=== PATIENT | female | born 1960 | race Caucasian/White ===

== ENCOUNTER 2016-08-28 06:38 | Emergency (ER) | payer OTHER ==
[2016-08-28 06:55] VITALS: TEMP 98.1; BMI 32.7
--- NOTE | 2016-08-28 07:56 | PDOC ---
*Physical Exam - Vital Signs Last Vital Signs Temp Pulse Resp BP Pulse Ox 98.1 F 122 H 14 142/82 98 08/28/16 06:53 08/28/16 06:53 08/28/16 06:53 08/28/16 06:53 08/28/16 06:53 - Physical Exam Comments: 08/28/16 07:55 MIDLEVEL NOTE Pt seen by Midlevel Provider under my direct supervision. Pt interviewed and examined. Ancillary studies reviewed. I agree with plan as outlined by Midlevel Provider. EKG Normal sinus rhythm 99, normal axis Normal AV and IV conduction time Normal EKG 08/28/16 09:20 Laboratory Results - last 24 hr 08/28/16 08/28/16 08/28/16 08:02 08:02 08:02 WBC 12.3 H D RBC 5.28 H Hgb 15.2 Hct 46.2 H MCV 87.5 MCHC 32.9 RDW 13.2 Plt Count 296 MPV 8.3 Neutrophils % 71.9 Lymphocytes % 21.7 D Monocytes % 5.1 Eosinophils % 0.7 Basophils % 0.6 INR 1.03 D-Dimer Sodium Potassium Chloride Carbon Dioxide Anion Gap BUN Creatinine Creat Clearance w eGFR Random Glucose Calcium Magnesium Total Bilirubin AST ALT Alkaline Phosphatase Creatine Kinase Troponin I Total Protein Albumin TSH Urine Color Ltyellow Urine Appearance Clear Urine pH 5.0 Ur Specific [place] 1.013 Urine Protein Negative Urine Glucose (UA) 1+ H Urine Ketones Trace H Urine Blood Negative Urine Nitrite Negative Urine Bilirubin Negative Urine Urobilinogen Negative Ur Leukocyte Esterase Trace H Urine RBC None Urine WBC 1 Ur Epithelial Cells Rare Urine Mucus Rare 08/28/16 08/28/16 08:02 08:02 WBC RBC Hgb Hct MCV MCHC RDW Plt Count MPV Neutrophils % Lymphocytes % Monocytes % Eosinophils % Basophils % INR D-Dimer < 200 Sodium 136 Potassium 4.0 Chloride 100 Carbon Dioxide 29 Anion Gap 7 L BUN 19 H Creatinine 0.9 Creat Clearance w eGFR > 60 Random Glucose 119 H Calcium 9.0 Magnesium 2.0 Total Bilirubin 0.8 AST 14 L ALT 22 Alkaline Phosphatase 106 Creatine Kinase 92 Troponin I < 0.02 Total Protein 8.0 Albumin 4.1 TSH 3.40 D Urine Color Urine Appearance Urine pH Ur Specific [place] Urine Protein Urine Glucose (UA) Urine Ketones Urine Blood Urine Nitrite Urine Bilirubin Urine Urobilinogen Ur Leukocyte Esterase Urine RBC Urine WBC Ur Epithelial Cells Urine Mucus D-dimer negative 08/28/16 10:05 TSH on the higher end of the normal range No evidence of hyperthyroidism based on this Patient remains in sinus rhythm on the monitor during period of observation in the emergency department ED Treatment Course - LABORATORY CBC & Chemistry Diagram: 08/28/16 08:02 08/28/16 08:02 *DC/Admit/Observation/Transfer Diagnosis at time of Disposition: Palpitations - Discharge Dispostion Disposition: HOME Condition at time of disposition: Improved - Referrals Referrals: Patrick Bedoya MD [Primary Care Provider] - - Patient Instructions Printed Discharge Instructions: DI for Anxiety -- Adult, DI for Palpitations Additional Instructions: Please follow-up with Dr. Bedoya on to visit with the marketing campaign analyst. If your symptoms worsen or you develop chest pain please return to the emergency department immediately
--- NOTE | 2016-08-28 08:18 | PDOC ---
History of Present Illness - General Chief Complaint: Palpitations Stated Complaint: PALPITATIONS, SOB Time Seen by Provider: 08/28/16 07:52 History Source: Patient Exam Limitations: No Limitations - History of Present Illness Initial Comments: 08/28/16 08:00 56-year-old female presents to the emergency with complaints of palpitations since yesterday intermittently associated with shortness of breath and dizziness. Patient states symptoms normally occur with exertion and denies any visual changes, headache, neck pain, chest pain, nausea, abdominal pain, or weakness. Patient states has history of diabetes and is followed by Dr. Bedoya who found a nodule approximately 1-2 months ago after having an ultrasound of her thyroid since it "felt large "on exam. Patient denies any heat or cold intolerance, weight change, hair loss, lethargy, or insomnia. Patient denies drug or alcohol use and states no recent travel, recent surgery, history of anxiety, recent change in medication or illness. Timing/Duration: 24 hours Severity: moderate Associated Symptoms: reports: shortness of breath Past History - Past Medical History Allergies/Adverse Reactions: Allergies Allergy/AdvReac Type Severity Reaction Status Date / Time No Known Allergies Allergy Verified 08/28/16 06:52 Home Medications: Ambulatory Orders Insulin Pump Cartridge [Accu-Chek D-Andrew Plus] 1 each SQ ASDIR 02/13/12 Lisinopril/Hydrochlorothiazide [Lisinopril-Hctz 10-12.5 mg Tab] 1 each PO DAILY 08/28/16 Diabetes: Yes (iddm) HTN: Yes - Immunization History Td Vaccination: No - Psycho/Social/Smoking Cessation Hx Anxiety: No Suicidal Ideation: No Smoking Status: No Smoking History: Never smoked Have you smoked in the past 12 months: No Number of Cigarettes Smoked Daily: 0 Information on smoking cessation initiated: No Hx Alcohol Use: No Drug/Substance Use Hx: No Patient Lives Alone: No Lives with/in: spouse/SO Review of Systems - Review of Systems Able to Perform ROS?: Yes Constitutional: No: Symptoms Reported HEENTM: No: Symptoms Reported Respiratory: Yes: SOB with Exertion Cardiac (ROS): Yes: Lightheadedness, Palpitations ABD/GI: No: Symptoms Reported : No: Symptoms Reported Musculoskeletal: No: Symptoms Reported Integumentary: No: Symptoms Reported Neurological: No: Symptoms reported Endocrine: No: Symptoms Reported Hematologic/Lymphatic: No: Symptoms Reported *Physical Exam - Vital Signs Last Vital Signs Temp Pulse Resp BP Pulse Ox 98.1 F 122 H 14 142/82 98 08/28/16 06:53 08/28/16 06:53 08/28/16 06:53 08/28/16 06:53 08/28/16 06:53 - Physical Exam General Appearance: Yes: Nourished, Appropriately Dressed. No: Apparent Distress HEENT: positive: EOMI, VENKATA. negative: Pale Conjunctivae Neck: positive: Normal Thyroid (no bruit), Supple. negative: Carotid bruit Respiratory/Chest: positive: Lungs Clear, Normal Breath Sounds. negative: Respiratory Distress, Accessory Muscle Use Cardiovascular: positive: Regular Rhythm. negative: Tachycardia (99 on EKG, 92 (left radial pulse)) Vascular Pulses: Dorsalis-Pedis (R): 2+, Doralis-Pedis (L): 2+ Gastrointestinal/Abdominal: positive: Soft. negative: Tenderness Extremity: positive: Normal Capillary Refill. negative: Pedal Edema Integumentary: positive: Normal Color, Warm, Moist Neurologic: positive: Normal Mood/Affect, Motor Strength 5/5 (ambulatory) Heart Score/ECG Review - History History: Slightly suspicious - Electrocardiogram EKG: Normal - Age Age: 45-65 - Risk Factors Risk Factors Heart Score: Yes Hx Hypertension, Yes Hx Diabetes Based on the list above the patient has:: 1-2 risk factors - Troponin Troponin: </= normal limit - Score Heart Score - Total: 2 - ECG Intrepretation Rhythm: Regular Rhythm (sinus rhythm at 99. no acute changes. No ST elevation/ depression noted. Intervals are reg.) - ECG Impressions Normal ECG: Yes Non-specific ST Elevation: No Ischemic Changes: No ED Treatment Course - LABORATORY CBC & Chemistry Diagram: 08/28/16 08:02 08/28/16 08:02 - RADIOLOGY Radiology Studies Ordered: Category Date Time Status CHEST X-RAY PORTABLE* [RAD] Stat Radiology 08/28/16 08:03 Ordered Medical Decision Making - Medical Decision Making 08/28/16 08:20 Patient he will complaints of intermittent palpitations worsened with exertion since yesterday associated with lightheadedness, and shortness of breath. Patient denies history of DVT, PE or history of clotting disorders. Patient states was told she had a thyroid nodule approximately 1-2 months ago and ultrasound but required no medical management at this time. Patient has history of diabetes which she states her BGM was 132 yesterday. Patient concerning for thyroid disorder versus PE E versus ACS. Patient ordered for labs, EKG, chest x-ray, and will consult Dr. Bedoya as needed. Patient states has not had an echocardiogram nor does she have a choir director. 08/28/16 09:23 Laboratory Tests 08/28/16 08/28/16 08/28/16 08:02 08:02 08:02 WBC 12.3 H D Lymphocytes % 21.7 D INR 1.03 D-Dimer Sodium Potassium Chloride Carbon Dioxide Anion Gap BUN Creatinine Creat Clearance w eGFR Random Glucose Calcium Total Bilirubin AST ALT Troponin I TSH Urine Glucose (UA) 1+ H Urine Ketones Trace H Urine Blood Negative Urine Nitrite Negative Ur Leukocyte Esterase Trace H Urine WBC 1 08/28/16 08/28/16 08:02 08:02 WBC Lymphocytes % INR D-Dimer < 200 Sodium 136 Potassium 4.0 Chloride 100 Carbon Dioxide 29 Anion Gap 7 L BUN 19 H Creatinine 0.9 Creat Clearance w eGFR > 60 Random Glucose 119 H Calcium 9.0 Total Bilirubin 0.8 AST 14 L ALT 22 Troponin I < 0.02 TSH 3.40 D Urine Glucose (UA) Urine Ketones Urine Blood Urine Nitrite Ur Leukocyte Esterase Urine WBC 1 L of normal saline ordered. 08/28/16 10:[address] Bedoya and agrees patient may follow-up in the office on with the choir director who was there on from [facility]. While reviewing patient's labs and findings with pt, . I questioned again about stress and states yes she is under a lot of stress in regards to her daughter But denies insomnia, change in appetite, or depression. Patient is currently asymptomatic and is requesting to go home. *DC/Admit/Observation/Transfer Diagnosis at time of Disposition: Palpitations - Discharge Dispostion Disposition: HOME Condition at time of disposition: Improved - Referrals Referrals: Patrick Bedoya MD [Primary Care Provider] - - Patient Instructions Printed Discharge Instructions: DI for Palpitations, DI for Anxiety -- Adult Additional Instructions: Please follow-up with Dr. Bedoya on to visit with the choir director. If your symptoms worsen or you develop chest pain please return to the emergency department immediately
[2016-08-28 08:38] LABS: BASOPHIL 0.6 % (0-2.0); EOSINOPHIL 0.7 % (0-4.5); MCH 28.7 pg (25.7-33.7); MCHC 32.9 g/dl (32.0-36.0); MEAN CELL VOLUME 87.5 fl (80-96); MEAN PLT VOLUME 8.3 fl (7.5-11.1); NEUTROPHILS 71.9 % (42.8-82.8); PLATELET COUNT 296 K/MM3 (134-434); RDW 13.2 % (11.6-15.6); WHITE BLOOD COUNT 12.3 K/mm3 (4.0-10.0)
[2016-08-28 08:42] LABS: URINE APPEARANCE CLEAR; URINE BILIRUBIN NEGATIVE (NEGATIVE); URINE BLOOD NEGATIVE (NEGATIVE); URINE COLOR LTYELLOW; URINE GLUCOSE (UA) 1+ (NEGATIVE); URINE KETONE TRACE (NEGATIVE); URINE NITRITE NEGATIVE (NEGATIVE); URINE PROTEIN NEGATIVE (NEGATIVE); URINE UROBILINOGEN NEGATIVE E.U./dl (0.2-1.0)
[2016-08-28 08:43] LABS: URINE LEUK ESTERASE TRACE (NEGATIVE)
[2016-08-28 08:45] LABS: URINE MUCUS RARE; URINE WBC 1 /hpf (3-5)
[2016-08-28] MEDS ORDERED: SODIUM CHLORIDE 1,000 ML IV STA (09:00)
[2016-08-28 09:04] LABS: INR 1.03 (0.82-1.09); PROTHROMBIN TIME (PATIENT) 11.3 SEC (9.98-11.88)
[2016-08-28 09:05] LABS: ALBUMIN 4.1 g/dl (3.4-5.0); ANION GAP 7 (8-16); BILIRUBIN,TOTAL 0.8 mg/dL (0.2-1.0); CO2 29 mmol/L (21-32); CREATININE 0.9 mg/dL (0.55-1.02); GLUCOSE,RANDOM 119 mg/dL (74-106); SGOT/AST 14 U/L (15-37); SGPT/ALT 22 U/L (12-78)
[2016-08-28 09:13] LABS: ALK PHOS 106 U/L (45-117); TROPONIN I < 0.02 ng/ml (0.00-0.05)
--- NOTE | 2016-08-28 10:57 | EKG ---
Test Reason : Blood Pressure : / mmHG Vent. Rate : 099 BPM Atrial Rate : 099 BPM P-R Int : 174 ms QRS Dur : 080 ms QT Int : 350 ms P-R-T Axes : 075 057 055 degrees QTc Int : 449 ms NORMAL SINUS RHYTHM NORMAL ECG WHEN COMPARED WITH ECG OF 04-JUN-2011 14:48, NO SIGNIFICANT CHANGE WAS FOUND Confirmed by SANTANA HARRIS MD ([id number]) on 08/28/2016 10:56:40 AM Referred By: Confirmed By:SANTANA HARRIS MD
[2016-08-28 11:44] VITALS: BP 133/76; PULSE 99
== END 2016-08-28 11:05 | disposition home or self-care (01) ==
LOC: JER 06:38
PROC: 3E0337Z Introduction of Electrolytic and Water Balance Substance into Peripheral Vein, Percutaneous Approach (ICD-10-PCS; principal; 2016-08-28)
DX: R00.2 Palpitations (principal); E11.9 Type 2 diabetes mellitus without complications; Z79.4 Long term (current) use of insulin; Z96.41 Presence of insulin pump (external) (internal); I10 Essential (primary) hypertension; F41.9 Anxiety disorder, unspecified
CPT/HCPCS: 36415; 71010-TC; 80053; 81003; 81015; 82550; 83735; 84443; 84484; 85025; 85379; 85610; 93005; 93010; 96360; 99283-25

== ENCOUNTER 2018-09-20 13:15 | Emergency (ER) | payer OTHER ==
[2018-09-20 13:29] VITALS: BP 167/90; PULSE 99; TEMP 98.2; BMI 29.6
[2018-09-20 13:46] LABS: PH,URINE 7.5 (4.5-8); URINE APPEARANCE CLOUDY; URINE BILIRUBIN NEGATIVE (NEGATIVE); URINE COLOR RED; URINE GLUCOSE (UA) NEGATIVE (NEGATIVE); URINE KETONE NEGATIVE (NEGATIVE); URINE NITRITE NEGATIVE (NEGATIVE); URINE PROTEIN 2+ (NEGATIVE)
[2018-09-20 13:47] LABS: URINE LEUK ESTERASE TRACE (NEGATIVE)
[2018-09-20 13:48] LABS: EPI CELLS FEW /HPF; URINE BACTERIA 1+ /hpf (NEGATIVE); URINE RBC >100 /hpf (0-3); URINE WBC 20-40 (0-5)
--- NOTE | 2018-09-20 14:10 | PDOC ---
History of Present Illness - General Chief Complaint: Hematuria Stated Complaint: HEMATURIA Time Seen by Provider: 09/20/18 13:15 - History of Present Illness Initial Comments: 09/20/18 14:35 The patient is a 58 year old female, with a significant PMH of IDDM, HTN, and hypothyroidism, who presents to the emergency department complaining of dysuria , hematuria, frequency and intermittent suprapubic pain since this morning. The patient states that beginning this morning she felt urinary urgency and upon going to urinate she experienced a strong pain in her suprapubic area and only a small amount of urine. She notes blood in her urine as well. Denies hx similar sxs. The patient denies chest pain, shortness of breath, headache and dizziness. Denies fever, chills, nausea, vomit, diarrhea and constipation. Denies weakness/numbness, trauma Denies recent travel Allergies: NKA Social history: None reported PCP: Dr. Kang Past History - Past Medical History Allergies/Adverse Reactions: Allergies Allergy/AdvReac Type Severity Reaction Status Date / Time No Known Allergies Allergy Verified 08/28/16 06:52 Home Medications: Ambulatory Orders Insulin Pump Cartridge [Accu-Chek D-Andrew Plus] 1 each SQ ASDIR 02/13/12 Lisinopril/Hydrochlorothiazide [Lisinopril-Hctz 10-12.5 mg Tab] 1 each PO DAILY 08/28/16 Phenazopyridine HCl [Pyridium -] 200 mg PO TID #6 tablet 09/20/18 Sulfamethoxazole/Trimethoprim [Bactrim Ds Tablet] 1 each PO BID #6 tablet Diabetes: Yes HTN: Yes - Reproductive History Is Patient Now?: No - Immunization History Td Vaccination: No - Suicide/Smoking/Psychosocial Hx Smoking Status: No Smoking History: Never smoked Have you smoked in the past 12 months: No Number of Cigarettes Smoked Daily: 0 Information on smoking cessation initiated: No Hx Alcohol Use: No Drug/Substance Use Hx: No Review of Systems - Review of Systems Comments:: 09/20/18 14:32 GENERAL/CONSTITUTIONAL: No fever or chills. No weakness. HEAD, EYES, EARS, NOSE AND THROAT: No change in vision. No ear pain or discharge. No sore throat. GASTROINTESTINAL: No nausea, vomiting, diarrhea or constipation. GENITOURINARY: +urgency, frequency, dysuria, suprapubic pain CARDIOVASCULAR: No chest pain or shortness of breath. RESPIRATORY: No cough, wheezing, or hemoptysis. MUSCULOSKELETAL: No joint or muscle swelling or pain. No neck or back pain. SKIN: No rash NEUROLOGIC: No headache, vertigo, loss of consciousness, or change in strength/ sensation. ENDOCRINE: No increased thirst. No abnormal weight change. HEMATOLOGIC/LYMPHATIC: No anemia, easy bleeding, or history of blood clots. ALLERGIC/IMMUNOLOGIC: No hives or skin allergy. *Physical Exam - Vital Signs Last Vital Signs Temp Pulse Resp BP Pulse Ox 98.2 F 99 H 20 167/90 98 09/20/18 13:15 09/20/18 13:15 09/20/18 13:15 09/20/18 13:15 09/20/18 13:15 - Physical Exam Comments: 09/20/18 14:33 GENERAL: Awake, alert, and fully oriented, in no acute distress HEAD: No signs of trauma EYES: PERRLA, EOMI, sclera anicteric, conjunctiva clear LUNGS: Breath sounds equal, clear to auscultation bilaterally. No wheezes, and no crackles HEART: Regular rate and rhythm, normal S1 and S2, no murmurs, rubs or gallops ABDOMEN: Soft, nontender, normoactive bowel sounds. No guarding, no rebound. No masses EXTREMITIES: Normal range of motion, no edema. No clubbing or cyanosis. No cords, erythema, or tenderness NEUROLOGICAL: Normal speech, cranial nerves intact, equal strength and sensation b/l SKIN: Warm, Dry, normal turgor, no rashes or lesions noted. Moderate Sedation - Procedure Monitoring Vital Signs: Procedure Monitoring Vital Signs Temperature 98.2 F 09/20/18 13:15 Pulse Rate 99 H 09/20/18 13:15 Respiratory Rate 20 09/20/18 13:15 Blood Pressure 167/90 09/20/18 13:15 O2 Sat by Pulse Oximetry (%) 98 09/20/18 13:15 ED Treatment Course - ADDITIONAL ORDERS Additional order review: Laboratory Results 09/20/18 13:29 Urine Color Red Urine Appearance Cloudy Urine pH 7.5 Ur Specific [place] 1.025 Urine Protein 2+ H Urine Glucose (UA) Negative Urine Ketones Negative Urine Blood 3+ H Urine Nitrite Negative Urine Bilirubin Negative Urine Urobilinogen 1.0 Ur Leukocyte Esterase Trace H Urine RBC >100 Urine WBC 20-40 Ur Epithelial Cells Few Urine Bacteria 1+ Medical Decision Making - Medical Decision Making 09/20/18 14:26 58yo F hx IDDM, HTN, hypothyroidism presents to the ED with intermittent dysuria , hematuria, urgency, and intermittent suprapubic pain. Vitals on arrival with elevated BP likely 2/2 discomfort, on repeat 144/80. Exam with no abd or flank ttp, pt uncomfortable but well appearing otherwise. Impression is cystitis with bladder spasm. Plan to treat with bactrim and pyridium. No systemic signs of infection. Stable for DC home. I discussed the physical exam findings, ancillary test results and final diagnoses with the patient. I answered all of the patient's questions. The patient was satisfied with the care received and felt comfortable with the discharge plan and treatment plan. The patient will call their primary care physician within 24 hours to arrange follow-up and will return to the Emergency Department with any new, persistent or worsening symptoms. *DC/Admit/Observation/Transfer Diagnosis at time of Disposition: Cystitis, Painful bladder spasm, UTI (urinary tract infection) - Discharge Dispostion Disposition: HOME Condition at time of disposition: Stable Decision to Admit order: No - Prescriptions Prescriptions: Phenazopyridine HCl [Pyridium -] 200 mg PO TID #6 tablet Sulfamethoxazole/Trimethoprim [Bactrim Ds Tablet] 1 each PO BID #6 tablet - Referrals - Patient Instructions Printed Discharge Instructions: DI for Urinary Tract Infection (UTI), DI for Acute Cystitis Additional Instructions: Take the medications as prescribed Follow up with your primary doctor within 1-2 days Return to the emergency department if you have any new, worsening, or concerning symptoms - Post Discharge Activity - Attestations Physician Attestion: 09/20/18 14:32 I, Dr. Bisi Stein MD, attest that this document has been prepared under my direction and personally reviewed by me in its entirety. I further attest, that it accurately reflects all work, treatment, procedures and medical decision -making performed by me.
[2018-09-20] MEDS ORDERED: PHENAZOPYRIDINE HCL 100 MG TABLET (FP) PO ONE (14:15)
[2018-09-20] MEDS ORDERED: SULFAMETHOXAZOLE/TRIMETHOPRIM 800MG/160MG D.S. TABLET PO ONE (14:16)
[2018-09-20] MEDS ORDERED: PHENAZOPYRIDINE HCL 100 MG TABLET (FP) ONE (14:17)
[2018-09-20] MEDS ORDERED: SULFAMETHOXAZOLE/TRIMETHOPRIM 800MG/160MG D.S. TABLET ONE (14:18)
== END 2018-09-20 14:49 | disposition home or self-care (01) ==
LOC: FER 13:15
DX: N32.89 Other specified disorders of bladder (principal); E11.9 Type 2 diabetes mellitus without complications; I10 Essential (primary) hypertension; E07.9 Disorder of thyroid, unspecified
CPT/HCPCS: 81003; 81015; 87086; 87186; 99282-25

== ENCOUNTER 2020-04-03 09:17 | Inpatient (IN) | payer OTHER ==
[2020-04-03] MEDS ORDERED: ONDANSETRON 4 MG/2 ML VIAL IVPUSH ONE (09:40)
[2020-04-03] MEDS ORDERED: LACTATED RINGERS SOLUTION 1000 ML INFUS.BAG IV STA (09:40)
[2020-04-03 10:24] LABS: BASO % 0.5 % (0-2.0); EOS % 0.3 % (0-4.5); HEMATOCRIT 39.6 % (32.4-45.2); HEMOGLOBIN 12.9 GM/dL (10.7-15.3); LYMPH % 14.4 % (8-40); MCH 28.9 pg (25.7-33.7); MCHC 32.5 g/dl (32.0-36.0); MEAN CELL VOLUME 88.9 fl (80-96); NEUT % 80.8 % (42.8-82.8); PLATELET COUNT 293 K/MM3 (134-434); RBC 4.45 M/mm3 (3.60-5.2); RDW 13.1 % (11.6-15.6); WHITE BLOOD COUNT 12.8 K/mm3 (4.0-10.0)
[2020-04-03] MEDS ORDERED: FAMOTIDINE 20 MG/50 ML IVPB 20 MG/50 ML MG IVPB ONE (10:30)
[2020-04-03] MEDS ORDERED: MAG HYDROX/AL HYDROX/SIMETH 30 ML UNIT-DOSE CUP PO ONE (10:30)
[2020-04-03] MEDS ORDERED: LIDOCAINE VISCOUS 2% ORAL/TOP 20 ML UNIT-DOSE CUP MM ONE (10:30)
[2020-04-03 10:39] LABS: VENOUS BASE EXCESS -6.1 mmol/L (-2-2); VENOUS O2 SATURATION 60.5 % (70-80); VENOUS PCO2 46.8 mmHg (38-52); VENOUS PH 7.271 (7.310-7.410)
[2020-04-03 10:44] LABS: ALBUMIN 3.9 g/dl (3.4-5.0); ALK PHOS 119 U/L (45-117); ANION GAP 15 MMOL/L (8-16); BILIRUBIN,TOTAL 1.7 mg/dL (0.2-1); BLOOD UREA NITROGEN 28.9 mg/dL (7-18); CALCIUM 9.7 mg/dL (8.5-10.1); CHLORIDE 100 mmol/L (98-107); CO2 21 mmol/L (21-32); CREATININE 1.2 mg/dL (0.55-1.3); LIPASE 91 U/L (73-393); POTASSIUM 4.8 mmol/L (3.5-5.1); SGOT/AST 21 U/L (15-37); SGPT/ALT 31 U/L (13-61); SODIUM 135 mmol/L (136-145); TOT PROT 7.2 g/dl (6.4-8.2)
[2020-04-03 10:48] LABS: GLUCOSE,RANDOM 561 mg/dL (74-106)
[2020-04-03] MEDS ORDERED: LIDOCAINE VISCOUS 2% ORAL/TOP 20 ML UNIT-DOSE CUP ONE (10:48)
[2020-04-03] MEDS ORDERED: MAG HYDROX/AL HYDROX/SIMETH 30 ML UNIT-DOSE CUP ONE (10:48)
[2020-04-03] MEDS ORDERED: SODIUM CHLORIDE 1,000 ML IV STA (10:51)
[2020-04-03] MEDS ORDERED: INSULIN REGULAR HUMAN 100 UNITS/ML *VIAL IVPUSH ONE (10:56)
[2020-04-03] MEDS ORDERED: LACTATED RINGERS SOLUTION 1,000 ML/1,000 ML INFUS.BAG IV SCH (11:00)
[2020-04-03] MEDS ORDERED: POTASSIUM CHLORIDE 20 MEQ PREMIX IVPB 100 ML IVPB ONE (11:00)
[2020-04-03] MEDS ORDERED: KCL 10 MEQ IVPB 20 MEQ/200 ML INFUS.BAG IVPB ONE (11:07)
[2020-04-03 11:14] LABS: URINE APPEARANCE CLEAR; URINE BILIRUBIN NEGATIVE (NEGATIVE); URINE COLOR YELLOW; URINE GLUCOSE (UA) 3+ (NEGATIVE); URINE KETONE 2+ (NEGATIVE); URINE LEUK ESTERASE NEGATIVE (NEGATIVE); URINE NITRITE NEGATIVE (NEGATIVE); URINE PROTEIN NEGATIVE (NEGATIVE); URINE UROBILINOGEN 0.2 mg/dL (0.2-1.0)
--- NOTE | 2020-04-03 11:59 | PDOC ---
History of Present Illness - History of Present Illness Initial Comments: 04/03/20 11:58 HPI: 59 y/o F with T1IDDM, HTN, hypothyroid presenting with epigastric abdominal pain, nausea and emesis since last night associated with hyperglycemia. Symptoms started around 11pm when she then noted elevated Glu 400-500s. Administered additional 10u SQ insulin to her basal 2u per hour from insulin pump last night with improvement of Glu to 300s. This morning her symptoms worsened with feelings of dehydration, fatigue, and rpt Glu 500s. Patient thinks her pump isnt working because she has never been unresponsive to insulin before. She denies fever, chills, chest pain, SOB, dysuria, hematuria, cough, rhinorrhea, congesti on PMHx: as noted above ROS: as noted SHx: Denies tobacco use; no alcohol use; no rec drugs Allergies: NKDA ROS: GENERAL/CONSTITUTIONAL: No fever or chills. +fatigue. HEAD, EYES, EARS, NOSE AND THROAT: No change in vision. No ear pain or discharge. No sore throat. CARDIOVASCULAR: No chest pain or shortness of breath RESPIRATORY: No cough, wheezing, or hemoptysis. GASTROINTESTINAL: +nausea, vomiting; no diarrhea or constipation. GENITOURINARY: No dysuria, frequency, or change in urination. MUSCULOSKELETAL: No joint or muscle swelling or pain. No neck or back pain. SKIN: No rash NEUROLOGIC: No headache, vertigo, loss of consciousness, or change in strength/sensation. ENDOCRINE: +increased thirst. No abnormal weight change HEMATOLOGIC/LYMPHATIC: No anemia, easy bleeding, or history of blood clots. ALLERGIC/IMMUNOLOGIC: No hives or skin allergy. PE: GENERAL: Awake, alert, and fully oriented, no acute distress HEAD: No signs of trauma, normocephalic, atraumatic EYES: EOMI, sclera anicteric, conjunctiva clear ENT: Auricles normal inspection, hearing grossly normal, nares patent, or opharynx clear without exudates. dry mucosa NECK: Normal ROM, no lymphadenopathy LUNGS: No increased work of breathing, symmetrical chest rise, clear to auscultation bilaterally, no wheezes, crackles or rhonchi HEART: Regular rate, regular rhythm, normal S1 and S2, no murmur, peripheral pulses 2+ and equal bilaterally. ABDOMEN: Soft, nondistended, diffuse abdominal discomfort, No guarding, no re bound. No masses. No CVAT MUSCULOSKELETAL: FROM NEUROLOGICAL: Cranial nerves II through XII grossly intact. Normal speech, stable gait, no focal sensorimotor deficits SKIN: Warm, Dry, normal turgor, no rashes or lesions noted <AxelNatalio ghosh - Last Filed: 04/03/20 14:46> <Steph,Diaz - Last Filed: 04/09/20 18:07> - General Chief Complaint: Blood Sugar Problem Stated Complaint: ABDOMINAL PAIN Time Seen by Provider: 04/03/20 09:26 Past History - Medical History COPD: No Diabetes: Yes (type 1 on pump) HTN: Yes - Reproductive History Is Patient Now?: No - Immunization History Td Vaccination: No - Psycho-Social/Smoking History Smoking Status: No Smoking History: Never smoked Have you smoked in the past 12 months: No Number of Cigarettes Smoked Daily: 0 Information on smoking cessation initiated: No - Substance Abuse Hx (Audit-C & DAST Scrn) How often the patient has a drink containing alcohol: Never Score: In Men: 4 or > Positive; In Women: 3 or > Positive: 0 Screen Result (Pos requires Nsg. Audit-10AR): Negative In the last yr the pt used illegal drug/Rx for NonMed reason: No Score: Yes response is considered Positive: 0 Screen Result (Positive result requires Nsg. DAST-10): Negative <Natalio Reyna - Last Filed: 04/03/20 14:46> <StephDiaz - Last Filed: 04/09/20 18:07> - Medical History Allergies/Adverse Reactions: Allergies Allergy/AdvReac Type Severity Reaction Status Date / Time No Known Allergies Allergy Verified 04/03/20 09:26 Home Medications: Ambulatory Orders Insulin Pump Cartridge [Accu-Chek D-Andrew Plus] 1 each SQ ASDIR 02/13/12 Losartan Potassium 100 mg PO DAILY 04/03/20 Insulin Glargine,Hum.rec.anlog [Lantus Solostar] 20 unit SQ DAILY #1 insuln.pen 04/05/20 Insulin Lispro [Humalog] 7 unit SQ AC #1 cartridge 04/05/20 Mupirocin Ointment [Bactroban Ointment (For Decolonization) -] 1 applic NS BID applic 04/05/20 *Physical Exam - Vital Signs Last Vital Signs Temp Pulse Resp BP Pulse Ox 98.2 F 127 H 20 126/65 100 04/03/20 09:23 04/03/20 09:23 04/03/20 09:23 04/03/20 09:23 04/03/20 09:23 <Natalio Reyna - Last Filed: 04/03/20 14:46> - Vital Signs Last Vital Signs Temp Pulse Resp BP Pulse Ox 98.1 F 96 H 18 154/72 97 04/05/20 14:00 04/05/20 14:00 04/05/20 14:00 04/05/20 14:00 04/05/20 14:00 <Diaz Choi - Last Filed: 04/09/20 18:07> ED Treatment Course - LABORATORY CBC & Chemistry Diagram: 04/03/20 10:00 04/03/20 11:47 - ADDITIONAL ORDERS Additional order review: Laboratory Results 04/03/20 04/03/20 04/03/20 11:00 10:20 10:00 VBG pH 7.271 L POC VBG pCO2 46.8 POC VBG pO2 35.7 VBG HCO3 21.1 L VBG O2 Sat (Vickie) 60.5 L VBG Base Excess -6.1 L Sodium Potassium Chloride Carbon Dioxide Anion Gap BUN Creatinine Est GFR (CKD-EPI)AfAm Est GFR (CKD-EPI)NonAf POC Glucometer Random Glucose Lactic Acid 3.5 H* Calcium Total Bilirubin AST ALT Alkaline Phosphatase Creatine Kinase Troponin I Total Protein Albumin Lipase Beta-Hydroxybutyrate Urine Color Yellow Urine Appearance Clear Urine pH 5.0 Ur Specific [place] 1.026 Urine Protein Negative Urine Glucose (UA) 3+ H Urine Ketones 2+ H Urine Blood Negative Urine Nitrite Negative Urine Bilirubin Negative Urine Urobilinogen 0.2 Ur Leukocyte Esterase Negative 04/03/20 04/03/20 10:00 09:34 VBG pH POC VBG pCO2 POC VBG pO2 VBG HCO3 VBG O2 Sat (Vickie) VBG Base Excess Sodium 135 L Potassium 4.8 Chloride 100 Carbon Dioxide 21 Anion Gap 15 BUN 28.9 H Creatinine 1.2 Est GFR (CKD-EPI)AfAm 58.10 Est GFR (CKD-EPI)NonAf 50.13 POC Glucometer 484 Random Glucose 561 H* Lactic Acid Calcium 9.7 Total Bilirubin 1.7 H AST 21 ALT 31 Alkaline Phosphatase 119 H Creatine Kinase 87 Troponin I < 0.02 Total Protein 7.2 Albumin 3.9 Lipase 91 Beta-Hydroxybutyrate 28.6 H Urine Color Urine Appearance Urine pH Ur Specific [place] Urine Protein Urine Glucose (UA) Urine Ketones Urine Blood Urine Nitrite Urine Bilirubin Urine Urobilinogen Ur Leukocyte Esterase 04/03/20 04/03/20 10:00 09:34 RBC 4.45 MCV 88.9 MCHC 32.5 RDW 13.1 MPV 9.0 Neutrophils % 80.8 D Lymphocytes % 14.4 D Monocytes % 4.0 Eosinophils % 0.3 D Basophils % 0.5 POC Glucometer 484 - Medications Given in the ED: ED Medications Discontinued Medications Generic Name Dose Route Start Last Admin Trade Name Freq PRN Reason Stop Dose Admin Al Hydroxide/Mg Hydroxide 30 ml 04/03/20 10:30 04/03/20 11:00 Mylanta Oral Suspension - PO 04/03/20 10:31 30 ml ONCE ONE Administration Famotidine/Sodium Chloride 20 mg in 50 mls @ 100 mls/hr 04/03/20 10:30 04/03/20 11:00 Pepcid 20 Mg Premixed Ivpb - IVPB 04/03/20 10:59 100 mls/hr ONCE ONE Administration Sodium Chloride 1,000 mls @ 1,000 mls/hr 04/03/20 10:51 04/03/20 11:03 Normal Saline - IV 04/03/20 11:50 Not Given ASDIR STA Insulin Human Regular 7 units 04/03/20 10:56 04/03/20 11:25 Novolin R Vial *For Ivpush Or Iv Drip Only* IVPUSH 04/03/20 10:57 7 units ONCE ONE Administration Lactated Ringer's 1,000 ml 04/03/20 09:40 04/03/20 10:11 Lactated Ringers Solution IV 04/03/20 09:41 1,000 ml ONCE STA Administration Lidocaine HCl 20 ml 04/03/20 10:30 04/03/20 11:00 Xylocaine 2% Viscous Oral - MM 04/03/20 10:31 20 ml ONCE ONE Administration Ondansetron HCl 4 mg 04/03/20 09:40 04/03/20 10:17 Zofran Injection IVPUSH 04/03/20 09:41 4 mg ONCE ONE Administration Potassium Chloride 20 meq 04/03/20 11:00 04/03/20 11:25 Potassium Chloride 20 Meq Premix Ivpb - IVPB 04/03/20 11:01 20 meq ONCE ONE Administration <Natalio Reyna - Last Filed: 04/03/20 14:46> - LABORATORY CBC & Chemistry Diagram: 04/04/20 05:20 04/05/20 09:10 - ADDITIONAL ORDERS Additional order review: 04/03/20 04/03/20 04/03/20 13:29 12:27 10:00 RBC 4.45 MCV 88.9 MCHC 32.5 RDW 13.1 MPV 9.0 Neutrophils % 80.8 D Lymphocytes % 14.4 D Monocytes % 4.0 Eosinophils % 0.3 D Basophils % 0.5 POC Glucometer 289 403 04/03/20 09:34 RBC MCV MCHC RDW MPV Neutrophils % Lymphocytes % Monocytes % Eosinophils % Basophils % POC Glucometer 484 - Medications Given in the ED: ED Medications Discontinued Medications Generic Name Dose Route Start Last Admin Trade Name Freq PRN Reason Stop Dose Admin Acetaminophen 650 mg 04/03/20 17:09 04/03/20 18:05 Tylenol - PO 650 mg Q4H PRN Administration HEADACHE Al Hydroxide/Mg Hydroxide 30 ml 04/03/20 10:30 04/03/20 11:00 Mylanta Oral Suspension - PO 04/03/20 10:31 30 ml ONCE ONE Administration Benzocaine/Menthol 1 each 04/04/20 03:39 04/04/20 08:06 Cepacol Lozenge - MM 1 each PRN PRN Administration SORE THROAT Benzocaine/Menthol 1 each 04/04/20 16:12 04/05/20 10:42 Cepacol Lozenge - MM 1 each Q2H PRN Administration SORE THROAT Chlorhexidine Gluconate 1 applic 04/03/20 22:00 04/03/20 22:44 Hibiclens For Decolonization - TP 1 applic HS ASHLYN Administration Dextrose 25 gm 04/03/20 16:40 04/03/20 16:30 D50w (Vial) - IVPUSH 04/03/20 16:41 25 gm NOW ONE Administration Enoxaparin Sodium 40 mg 04/04/20 10:00 04/04/20 10:46 Lovenox - SQ 40 mg DAILY ASHLYN Administration Enoxaparin Sodium 40 mg 04/05/20 10:00 04/05/20 10:34 Lovenox - SQ 40 mg DAILY ASHLYN Administration Famotidine/Sodium Chloride 20 mg in 50 mls @ 100 mls/hr 04/03/20 10:30 04/03/20 11:00 Pepcid 20 Mg Premixed Ivpb - IVPB 04/03/20 10:59 100 mls/hr ONCE ONE Administration Sodium Chloride 1,000 mls @ 1,000 mls/hr 04/03/20 10:51 04/03/20 11:03 Normal Saline - IV 04/03/20 11:50 Not Given ASDIR STA Lactated Ringer's 1,000 ml in 1,000 mls @ 999 mls/hr 04/03/20 11:00 04/03/20 11:25 Lactated Ringers Solution IV 999 mls/hr ASDIR ASHLYN Administration Lactated Ringer's 1,000 ml in 1,000 mls @ 999 mls/hr 04/03/20 12:09 04/03/20 12:17 Lactated Ringers Solution IV 04/03/20 13:09 Not Given ONCE ONE Insulin Human Regular 100 100 mls @ 7.258 mls/hr 04/03/20 14:30 04/03/20 14:51 units/ Sodium Chloride IVPB 0.1 units/kg/hr TITR ASHLYN 7.258 mls/hr Administration Protocol 0.1 UNITS/KG/HR Sodium Chloride 1,000 mls @ 100 mls/hr 04/03/20 14:30 04/03/20 14:51 1/2 Normal Saline IV 100 mls/hr ASDIR ASHLYN Administration Dextrose/Sodium Chloride 1,000 mls @ 100 mls/hr 04/03/20 15:45 04/03/20 16:30 D5-1/2ns - IV 100 mls/hr ASDIR ASHLYN Administration Insulin Aspart 1 vial 04/03/20 22:00 04/04/20 12:21 Novolog Vial Sliding Scale - SQ 4 units ACHS ASHLYN Administration Protocol Insulin Aspart 1 vial 04/04/20 16:30 04/05/20 12:04 Novolog Vial Sliding Scale - SQ 4 units ACHS [facility] Administration Protocol Insulin Detemir 8 units 04/03/20 17:50 04/03/20 18:07 Levemir Vial SQ 04/03/20 17:51 8 units ONCE ONE Administration Insulin Detemir 20 units 04/05/20 07:00 04/05/20 06:20 Levemir Vial SQ 20 unit DAILY@0700 ASHLYN Administration Insulin Human Regular 7 units 04/03/20 10:56 04/03/20 11:25 Novolin R Vial *For Ivpush Or Iv Drip Only* IVPUSH 04/03/20 10:57 7 units ONCE ONE Administration Insulin Human Regular 12 units 04/03/20 12:36 04/03/20 12:54 Novolin R Vial *For Ivpush Or Iv Drip Only* SQ 04/03/20 12:37 12 units ONCE ONE Administration Insulin Human Regular 11 units 04/03/20 14:23 04/03/20 14:50 Novolin R Vial *For Ivpush Only 0.15 units/kg (11 units) 04/03/20 14:24 11 units IVPUSH Administration ONCE ONE Lactated Ringer's 1,000 ml 04/03/20 09:40 04/03/20 10:11 Lactated Ringers Solution IV 04/03/20 09:41 1,000 ml ONCE STA Administration Lidocaine HCl 20 ml 04/03/20 10:30 04/03/20 11:00 Xylocaine 2% Viscous Oral - MM 04/03/20 10:31 20 ml ONCE ONE Administration Mupirocin 1 applic 04/03/20 22:00 04/04/20 15:34 Bactroban Ointment (For Decolonization) - NS 04/08/20 21:59 Not Given BID [facility] Ondansetron HCl 4 mg 04/03/20 09:40 04/03/20 10:17 Zofran Injection IVPUSH 04/03/20 09:41 4 mg ONCE ONE Administration Potassium Chloride 20 meq 04/03/20 11:00 04/03/20 11:25 Potassium Chloride 20 Meq Premix Ivpb - IVPB 04/03/20 11:01 20 meq ONCE ONE Administration <Steph,Diaz - Last Filed: 04/09/20 18:07> Medical Decision Making - Medical Decision Making 04/03/20 15:00 59 y/o F with T1IDDM, HTN, hypothyroid presenting with epigastric abdominal pain, nausea and emesis since last night associated with hyperglycemia. HR 120s. PE with dry mucosa and diffuse abd discomfort on palpation -cbc, cmp, card prof, beta hydroxy, ekg, cxr, ua, mg, lipase, vbg -2L LR 04/03/20 15:01 Laboratory Tests 04/03/20 04/03/20 04/03/20 10:00 10:00 10:00 WBC 12.8 H VBG pH POC VBG pCO2 POC VBG pO2 Sodium 135 L BUN 28.9 H Creatinine 1.2 Random Glucose 561 H* Lactic Acid 3.5 H* Total Bilirubin 1.7 H Alkaline Phosphatase 119 H Beta-Hydroxybutyrate 28.6 H 04/03/20 10:20 WBC VBG pH 7.271 L POC VBG pCO2 46.8 POC VBG pO2 35.7 Sodium BUN Creatinine Random Glucose Lactic Acid Total Bilirubin Alkaline Phosphatase Beta-Hydroxybutyrate will administer 7units insulin IV additional 1L for total 3L rpt bgm 400; will give insulin 12u sq will admit for DKA; admitting team highly recommending insulin drip consult to ICU for eval admitted to ICU for insulin ggt patient status improved tbili1.7 and alk phos 100s; will proceed with RUQ US to r/o nicholas <Natalio Reyna - Last Filed: 04/03/20 14:46> Discharge - Discharge Information Problems reviewed: Yes <Natalio Reyna - Last Filed: 04/03/20 14:46> <Diaz Choi - Last Filed: 04/09/20 18:07> - Discharge Information Clinical Impression/Diagnosis: Hyperglycemia Condition: Stable Disposition: HOME
--- NOTE | 2020-04-03 12:04 | PDOC ---
Documentation entered by Kamran Alcala SCRIBE, acting as scribe for Diaz Choi MD. Diaz Choi MD: This documentation has been prepared by the Fredrick seals Angel, SCRIBE, under my direction and personally reviewed by me in its entirety. I confirm that the documentation accurately reflects all work, treatment, procedures, and medical decision making performed by me. Attending Attestation - Resident Resident Name: Natalio Reyna - ED Attending Attestation I have performed the following: I have examined & evaluated the patient, The case was reviewed & discussed with the resident, I agree w/resident's findings & plan, Exceptions are as noted - HPI HPI: 04/03/20 11:36 The patient is a 59 year old female with a significant past medical history of IDDM, HTN, and hypothyroidism who presents to the ED with nausea and generalized weakness since yesterday. The patient states she got a new insulin pump after her original one was recalled. She states her family programmed her new insulin pump and when checking her blood sugar last night her glucose was elevated. The patient reports nausea and feeling weak last night as well as today. The patient notes taking her insulin this morning. The patient denies pain of any kind, fever/chills, vomiting or any other complaints. - Physicial Exam PE: 04/03/20 11:30 GENERAL: The patient is awake, alert, and fully oriented, Nontoxic - in no acute distress. HEAD: Normocephalic, atraumatic. EYES: extraocular movements intact, sclera anicteric, conjunctiva clear. ENT: Normal voice, dry mucous membranes. NECK: Normal range of motion, supple LUNGS: Breath sounds equal, clear to auscultation bilaterally. No wheezes, no rhonchi, no rales. HEART: Regular rate and rhythm, normal S1 and S2 without murmur, rub or gallop. ABDOMEN: Soft, nontender, No guarding, no rebound. No CVA tenderness EXTREMITIES: Normal range of motion, no edema. NEUROLOGICAL: No facial assymetry, Normal speech, moving all 4 extremities s pontaneously and symmetrically PSYCH: Normal mood, normal affect. SKIN: Warm, Dry, normal turgor, - Medical Decision Making 04/03/20 11:31 hyperglycemia vs dka likely related to programming/malfunction of new insulin pump will ck labs, fluids, possibly insulin labs noted for +acetones, slightly acidodic but not DKA will give insulin/fluids antiemetic for sypmmoatic releif will admit for further management Heart Score/ECG Review - ECG Impressions Comment:: 04/03/20 11:32 Twelve-lead EKG was performed and reviewed by me. There is normal sinus rhythm with a rate of 113 The axis is normal. The intervals are normal. There is normal R wave progression There are no ST or T wave abnormalities. Impression: Sinus tachycardia Discharge - Discharge Information Problems reviewed: Yes Clinical Impression/Diagnosis: Hyperglycemia Condition: Stable Disposition: HOME - Follow up/Referral - Patient Discharge Instructions - Post Discharge Activity
[2020-04-03] MEDS ORDERED: LACTATED RINGERS SOLUTION 1,000 ML/1,000 ML INFUS.BAG IV ONE (12:09)
[2020-04-03 12:16] LABS: BLOOD UREA NITROGEN 29.1 mg/dL (7-18); CALCIUM 9.3 mg/dL (8.5-10.1); CREATININE 1.1 mg/dL (0.55-1.3); POTASSIUM 4.7 mmol/L (3.5-5.1)
[2020-04-03] MEDS ORDERED: INSULIN REGULAR HUMAN 100 UNITS/ML *VIAL SQ ONE (12:36)
--- NOTE | 2020-04-03 14:17 | CONSULT ---
Consultation: REQUESTING PROVIDER: Dr. Lee CONSULT REQUEST: We have been asked to medically evaluate this patient for DKA. HISTORY OF PRESENT ILLNESS: 59F w/ pmhx of IDDM (currently on an insulin pump), HTN presents in the ED for nausea, abd pain, and hyperglycemia. Pt states she recently received a new insulin pump (previous was recalled) about 2 days ago which her daughter had installed herself. Pt reports since using the new insulin pump she has been feeling "off". Last night, she was awoken from sleep for nausea/vomiting and intense abdominal pain. States that she thinks that her new insulin pump hadn't been working as she noticed that her sugars were running in the 300-400s. Usually, her glucose levels are less than 200. Her master of ceremonies is Dr. Bedoya and she follows up regularly with him as an outpatient. She denies gomez/d, f/c, vomiting, chest pain, sob, urinary/bowel symptoms. REVIEW OF SYSTEMS: CONSTITUTIONAL: Absent: fever, chills, diaphoresis, generalized weakness, malaise, loss of appetite, weight change HEENT: Absent: rhinorrhea, nasal congestion, throat pain, throat swelling, difficulty swallowing, mouth swelling, ear pain, eye pain, visual changes CARDIOVASCULAR: Absent: chest pain, syncope, palpitations, irregular heart rate, lighth eadedness, peripheral edema RESPIRATORY: Absent: cough, shortness of breath, dyspnea with exertion, orthopnea, wheezing, stridor, hemoptysis GASTROINTESTINAL: abdominal pain, nausea Absent: abdominal distension, vomiting, diarrhea, constipation, melena, hematochezia GENITOURINARY: Absent: dysuria, frequency, urgency, hesitancy, hematuria, flank pain, genital pain MUSCULOSKELETAL: Absent: myalgia, arthralgia, joint swelling, back pain, neck pain SKIN: Absent: rash, itching, pallor HEMATOLOGIC/IMMUNOLOGIC: Absent: easy bleeding, easy bruising, lymphadenopathy, frequent infections ENDOCRINE: Absent: unexplained weight gain, unexplained weight loss, heat intolerance, cold intolerance NEUROLOGIC: Absent: headache, focal weakness or paresthesias, dizziness, unsteady gait, seizure, mental status changes, bladder or bowel incontinence PSYCHIATRIC: Absent: anxiety, depression, suicidal or homicidal ideation, hallucinations. PHYSICAL EXAMINATION Vital Signs - 24 hr 04/03/20 04/03/20 04/03/20 09:23 10:00 12:21 Temperature 98.2 F Pulse Rate 127 H Pulse Rate [ 99 H Right Radial] Respiratory 20 18 Rate Blood Pressure 126/65 Blood Pressure 141/62 [Right Arm] O2 Sat by Pulse 100 99 99 Oximetry (%) GENERAL: Awake, alert, and fully oriented, in no acute distress. HEENT: AT/NC. EOMI. MMM. NECK: Normal range of motion, supple without lymphadenopathy, JVD, or masses. LUNGS: CTA B/L. No wheezes/rales noted. HEART: RRR, normal S1, S2. No murmurs noted. ABDOMEN: Soft, NT/ND. Normoactive BS. MUSCULOSKELETAL: Normal range of motion at all joints. No bony deformities or tenderness. No CVA tenderness. EXTREMITIES: No peripheral edema noted. NEUROLOGICAL: Cranial nerves II-XII intact. Normal speech. PSYCHIATRIC: Cooperative. Good eye contact. Appropriate mood and affect. SKIN: Warm, dry, normal turgor, no rashes or lesions noted. Laboratory Results - last 24 hr 04/03/20 04/03/20 04/03/20 09:34 10:00 10:00 WBC 12.8 H RBC 4.45 Hgb 12.9 Hct 39.6 MCV 88.9 MCH 28.9 MCHC 32.5 RDW 13.1 Plt Count 293 MPV 9.0 Absolute Neuts (auto) 10.4 H Neutrophils % 80.8 D Lymphocytes % 14.4 D Monocytes % 4.0 Eosinophils % 0.3 D Basophils % 0.5 Nucleated RBC % 0 VBG pH POC VBG pCO2 POC VBG pO2 VBG HCO3 VBG O2 Sat (Vickie) VBG Base Excess Sodium 135 L Potassium 4.8 Chloride 100 Carbon Dioxide 21 Anion Gap 15 BUN 28.9 H Creatinine 1.2 Est GFR (CKD-EPI)AfAm 58.10 Est GFR (CKD-EPI)NonAf 50.13 POC Glucometer 484 Random Glucose 561 H* Lactic Acid Calcium 9.7 Total Bilirubin 1.7 H AST 21 ALT 31 Alkaline Phosphatase 119 H Creatine Kinase 87 Troponin I < 0.02 Total Protein 7.2 Albumin 3.9 Lipase 91 Beta-Hydroxybutyrate 28.6 H Urine Color Urine Appearance Urine pH Ur Specific [place] Urine Protein Urine Glucose (UA) Urine Ketones Urine Blood Urine Nitrite Urine Bilirubin Urine Urobilinogen Ur Leukocyte Esterase 04/03/20 04/03/20 04/03/20 10:00 10:20 11:00 WBC RBC Hgb Hct MCV MCH MCHC RDW Plt Count MPV Absolute Neuts (auto) Neutrophils % Lymphocytes % Monocytes % Eosinophils % Basophils % Nucleated RBC % VBG pH 7.271 L POC VBG pCO2 46.8 POC VBG pO2 35.7 VBG HCO3 21.1 L VBG O2 Sat (Vickie) 60.5 L VBG Base Excess -6.1 L Sodium Potassium Chloride Carbon Dioxide Anion Gap BUN Creatinine Est GFR (CKD-EPI)AfAm Est GFR (CKD-EPI)NonAf POC Glucometer Random Glucose Lactic Acid 3.5 H* Calcium Total Bilirubin AST ALT Alkaline Phosphatase Creatine Kinase Troponin I Total Protein Albumin Lipase Beta-Hydroxybutyrate Urine Color Yellow Urine Appearance Clear Urine pH 5.0 Ur Specific [place] 1.026 Urine Protein Negative Urine Glucose (UA) 3+ H Urine Ketones 2+ H Urine Blood Negative Urine Nitrite Negative Urine Bilirubin Negative Urine Urobilinogen 0.2 Ur Leukocyte Esterase Negative 04/03/20 04/03/20 04/03/20 11:47 12:27 13:00 WBC RBC Hgb Hct MCV MCH MCHC RDW Plt Count MPV Absolute Neuts (auto) Neutrophils % Lymphocytes % Monocytes % Eosinophils % Basophils % Nucleated RBC % VBG pH POC VBG pCO2 POC VBG pO2 VBG HCO3 VBG O2 Sat (Vickie) VBG Base Excess Sodium 137 Potassium 4.7 Chloride 102 Carbon Dioxide 21 Anion Gap 14 BUN 29.1 H Creatinine 1.1 Est GFR (CKD-EPI)AfAm 64.54 Est GFR (CKD-EPI)NonAf 55.69 POC Glucometer 403 Random Glucose 513 H* Lactic Acid 3.1 H* Calcium 9.3 Total Bilirubin AST ALT Alkaline Phosphatase Creatine Kinase Troponin I Total Protein Albumin Lipase Beta-Hydroxybutyrate Urine Color Urine Appearance Urine pH Ur Specific [place] Urine Protein Urine Glucose (UA) Urine Ketones Urine Blood Urine Nitrite Urine Bilirubin Urine Urobilinogen Ur Leukocyte Esterase 04/03/20 13:29 WBC RBC Hgb Hct MCV MCH MCHC RDW Plt Count MPV Absolute Neuts (auto) Neutrophils % Lymphocytes % Monocytes % Eosinophils % Basophils % Nucleated RBC % VBG pH POC VBG pCO2 POC VBG pO2 VBG HCO3 VBG O2 Sat (Vickie) VBG Base Excess Sodium Potassium Chloride Carbon Dioxide Anion Gap BUN Creatinine Est GFR (CKD-EPI)AfAm Est GFR (CKD-EPI)NonAf POC Glucometer 289 Random Glucose Lactic Acid Calcium Total Bilirubin AST ALT Alkaline Phosphatase Creatine Kinase Troponin I Total Protein Albumin Lipase Beta-Hydroxybutyrate Urine Color Urine Appearance Urine pH Ur Specific [place] Urine Protein Urine Glucose (UA) Urine Ketones Urine Blood Urine Nitrite Urine Bilirubin Urine Urobilinogen Ur Leukocyte Esterase ASSESSMENT/PLAN: 59F w/ pmhx of IDDM (currently on insulin pump) and HTN presents in the ED for complaints of hyperglycemia, nausea, abd pain admitted in the ICU for management of DKA. Neuro -Stable, no acute issues. AAOx3, no acute distress. Pulm -Stable, no acute issues. CV #Hx of HTN; cont home med: Losartan 100 QD -HD stable, no acute issues. Endo #Diabetic Ketoacidosis -AG 15 --> 14, HCO3 21, B-hydroxybutyrate elevated, glu ~500s, lactate 3.1, pH 7.27, UA 2+ ketones and 3+ glucose -Given Novolin 7U, then 12U in ED -Will start on insulin drip; goal decrease 50-75 mg/dL in 1st hour and maintain Glu 150-200 -If pt continues to stay elevated, titrate rate of drip -Given 3L IVf, in ED; will continue on 1/2 NS, then switch to D5-1/2NS once glucose reaches 200 -BMPs Q2H GI #Abdominal pain, likely 2/2 DKA -Resolved. Renal #Lactic Acidosis -Lac 3.5 --> 3.1; cont IVf -Repeat lactate ordered for 7pm Prophylaxis DVT: Lovenox FEN -1/2NS @ 100 -recheck lytes Q2h (K+, replete PRN) -NPO Dispo: We will continue to follow the patient. Thank you for this consultative opportunity. Visit type - Emergency Visit Emergency Visit: Yes ED Registration Date: 04/03/20 Care time: The patient presented to the Emergency Department on the above date and was hospitalized for further evaluation of their emergent condition. - New Patient This patient is new to me today: Yes Date on this admission: 04/03/20 - Critical Care Critical Care patient: Yes Total Critical Care Time (in minutes): 36 Critical Care Statement: The care of this patient involved high complexity decision making to prevent further life threatening deterioration of the patient's condition and/or to evaluate & treat vital organ system(s) failure or risk of failure. ATTENDING PHYSICIAN STATEMENT I saw and evaluated the patient. I reviewed the resident's note and discussed the case with the resident. I agree with the resident's findings and plan as documented. SUBJECTIVE: OBJECTIVE: ASSESSMENT AND PLAN:
[2020-04-03] MEDS ORDERED: INSULIN REGULAR HUMAN 100 UNITS/ML *VIAL* (FOR IVP) IVPUSH ONE (14:23)
[2020-04-03] MEDS ORDERED: INSULIN REGULAR 100 UNITS in SODIUM CHLORIDE 99 ML IVPB SCH (14:30)
[2020-04-03] MEDS ORDERED: SODIUM CHLORIDE 0.45% 1,000 ML IV SCH (14:30)
[2020-04-03] MEDS ORDERED: DEXTROSE 5%-0.45% SALINE 1,000 ML IV SCH (15:45)
[2020-04-03 16:15] LABS: BLOOD UREA NITROGEN 22.4 mg/dL (7-18); CALCIUM 8.9 mg/dL (8.5-10.1); CREATININE 0.9 mg/dL (0.55-1.3); POTASSIUM 3.9 mmol/L (3.5-5.1)
[2020-04-03] MEDS ORDERED: DEXTROSE 50%-WATER - 25 GM/50 ML VIAL IVPUSH ONE (16:40)
[2020-04-03] MEDS ORDERED: ACETAMINOPHEN 325 MG TABLET (FP) PO PRN (17:09)
[2020-04-03 17:40] VITALS: BMI 32.1
[2020-04-03] MEDS ORDERED: INSULIN (LEVEMIR) 100 UNITS/ML UNITS SQ ONE (17:50)
--- NOTE | 2020-04-03 20:43 | CONSULT ---
Consult Consult Specialty:: endocrine Referred by:: hospitalist Reason for Consultation:: dka - History of Present Illness Chief Complaint: high sugars History of Present Illness: 59F w/ pmhx of Type 1DM, (currently on an new insulin pump), HTN presented for nausea, abd pain, and hyperglycemia. Pt states she recently received a new insulin pump (previous was recalled) about 2 days ago which her daughter had installed herselre running in the 300-400s. Usually, her glucose levels are less than 200. she has been feeling nauseas and drinking enough liquids,tired weak poor appetite.no cough fever or chills.she has been unable to eat or drink last 2 days - Past Medical History ...: No - Alcohol/Substance Use Hx Alcohol Use: No - Smoking History Smoking history: Never smoked Have you smoked in the past 12 months: No Aproximately how many cigarettes per day: 0 Home Medications - Allergies Allergies/Adverse Reactions: Allergies Allergy/AdvReac Type Severity Reaction Status Date / Time No Known Allergies Allergy Verified 04/03/20 09:26 - Home Medications Home Medications: Ambulatory Orders Insulin Pump Cartridge [Accu-Chek D-Andrew Plus] 1 each SQ ASDIR 02/13/12 Losartan Potassium 100 mg PO DAILY 04/03/20 Review of Systems - Review of Systems Constitutional: reports: Malaise Eyes: reports: No Symptoms HENT: reports: No Symptoms Neck: reports: No Symptoms Cardiovascular: reports: No Symptoms Respiratory: reports: No Symptoms Gastrointestinal: reports: Indigestion, Nausea, Vomiting Genitourinary: reports: No Symptoms Breasts: reports: No Symptoms Reported Musculoskeletal: reports: Muscle Pain, Muscle Cramps, Muscle Weakness Integumentary: reports: No Symptoms Neurological: reports: Numbness Physical Exam Vital Signs: Vital Signs Temperature 98.5 F 04/03/20 16:10 Pulse Rate 79 04/03/20 19:00 Respiratory Rate 18 04/03/20 19:00 Blood Pressure 134/66 04/03/20 19:00 O2 Sat by Pulse Oximetry (%) 99 04/03/20 19:00 Labs: CBC, BMP 04/03/20 10:00 Problem List - Problems (1) DKA (diabetic ketoacidoses) Code(s): E11.10 - TYPE 2 DIABETES MELLITUS WITH KETOACIDOSIS WITHOUT COMA (2) Cystitis Code(s): N30.90 - CYSTITIS, UNSPECIFIED WITHOUT HEMATURIA (3) Painful bladder spasm Code(s): R30.1 - VESICAL TENESMUS (4) Palpitations Code(s): R00.2 - PALPITATIONS Assessment/Plan Current Active Problems DKA (diabetic ketoacidoses) (Acute) last hba1c 9.2% 03/08/2020 Abnormal Lab Results 04/03/20 04/03/20 04/03/20 10:00 10:00 10:00 WBC 12.8 H Absolute Neuts (auto) 10.4 H VBG pH VBG HCO3 VBG O2 Sat (Vickie) VBG Base Excess Sodium 135 L Chloride Anion Gap BUN 28.9 H Random Glucose 561 H* Lactic Acid 3.5 H* Total Bilirubin 1.7 H Alkaline Phosphatase 119 H Beta-Hydroxybutyrate 28.6 H Urine Glucose (UA) Urine Ketones 04/03/20 04/03/20 04/03/20 10:20 11:00 11:47 WBC Absolute Neuts (auto) VBG pH 7.271 L VBG HCO3 21.1 L VBG O2 Sat (Vickie) 60.5 L VBG Base Excess -6.1 L Sodium Chloride Anion Gap BUN 29.1 H Random Glucose 513 H* Lactic Acid Total Bilirubin Alkaline Phosphatase Beta-Hydroxybutyrate Urine Glucose (UA) 3+ H Urine Ketones 2+ H 04/03/20 04/03/20 04/03/20 13:00 15:25 20:00 WBC Absolute Neuts (auto) VBG pH VBG HCO3 VBG O2 Sat (Vickie) VBG Base Excess Sodium Chloride 109 H Anion Gap 7 L 6 L BUN 22.4 H 20.5 H Random Glucose 124 H 169 H Lactic Acid 3.1 H* Total Bilirubin Alkaline Phosphatase Beta-Hydroxybutyrate Urine Glucose (UA) Urine Ketones plan: bgm achs novolog scale levemir 20units am dc to follow up with cde pump certified personal trainer and restart insulin pump last hba1c 9.2
[2020-04-03 20:56] LABS: BLOOD UREA NITROGEN 20.5 mg/dL (7-18); CALCIUM 8.6 mg/dL (8.5-10.1); CREATININE 0.8 mg/dL (0.55-1.3); POTASSIUM 4.2 mmol/L (3.5-5.1)
[2020-04-03] MEDS ORDERED: CHLORHEXIDINE GLUCONATE 4% CLEANSER FOR DECOLONIZATION TP SCH (22:00)
[2020-04-03] MEDS: INSULIN SLIDING SCALE (NOVOLOG) 1 VIAL SQ SCH (22:43)
[2020-04-03] MEDS: MUPIROCIN 2% TOPICAL OINTMENT FOR DECOLONIZATION NS SCH (22:44)
[2020-04-04] MEDS: BENZOCAINE/MENTH/CETYLPYRD CL 1 EACH LOZENGE MM PRN ×4 (03:47→21:56)
[2020-04-04 06:52] LABS: BASO % 0.4 % (0-2.0); EOS % 0.4 % (0-4.5); HEMATOCRIT 34.7 % (32.4-45.2); HEMOGLOBIN 11.4 GM/dL (10.7-15.3); LYMPH % 17.9 % (8-40); MCH 29.1 pg (25.7-33.7); MCHC 32.8 g/dl (32.0-36.0); MEAN CELL VOLUME 88.8 fl (80-96); MONO % 5.9 % (3.8-10.2); NEUT % 75.4 % (42.8-82.8); PLATELET COUNT 235 K/MM3 (134-434); RDW 13.1 % (11.6-15.6); WHITE BLOOD COUNT 11.3 K/mm3 (4.0-10.0)
[2020-04-04 07:20] LABS: ALBUMIN 3.1 g/dl (3.4-5.0); BILIRUBIN,TOTAL 1.3 mg/dL (0.2-1); BLOOD UREA NITROGEN 15.1 mg/dL (7-18); CALCIUM 8.3 mg/dL (8.5-10.1); CREATININE 0.9 mg/dL (0.55-1.3); MAGNESIUM 1.8 mg/dL (1.8-2.4); PHOSPHOROUS 3.4 mg/dL (2.5-4.9); POTASSIUM 4.7 mmol/L (3.5-5.1); TOT PROT 5.8 g/dl (6.4-8.2)
[2020-04-04] MEDS: INSULIN SLIDING SCALE (NOVOLOG) 1 VIAL SQ SCH ×4 (08:05→21:56)
[2020-04-04] MEDS ORDERED: ENOXAPARIN NA (PORCINE) 40 MG/0.4 ML DISP.SYRIN SQ SCH (10:00)
--- NOTE | 2020-04-04 11:20 | EKG ---
Test Reason : Blood Pressure : / mmHG Vent. Rate : 113 BPM Atrial Rate : 113 BPM P-R Int : 174 ms QRS Dur : 082 ms QT Int : 338 ms P-R-T Axes : 072 050 066 degrees QTc Int : 463 ms SINUS TACHYCARDIA POSSIBLE LEFT ATRIAL ENLARGEMENT BORDERLINE ECG WHEN COMPARED WITH ECG OF 28-AUG-2016 07:45, NO SIGNIFICANT CHANGE WAS FOUND Confirmed by SANTANA HARRIS MD ([id number]) on 04/04/2020 11:20:09 AM Referred By: Confirmed By:SANTANA HARRIS MD
--- NOTE | 2020-04-04 12:08 | PN ---
Progress Note (short form) - Note Progress Note: Patient is a 59 y/o F with a significant past medical history of IDDM (currently on an insulin pump) and HTN who presented in the ED for nausea, abd pain, and hyperglycemia. Patient admitted to ICU for DKA management. AG has now closed, patient off of insulin drip, and patient is now transitioned to SQ insulin. Pt found to have pump that was recalled. Patient safe for transfer to [facility] unit. PE GENERAL: Awake, alert, and fully oriented, in no acute distress HEAD: No signs of trauma, normocephalic, atraumatic EYES: PERRLA, EOMI, sclera anicteric, conjunctiva clear ENT: Auricles normal inspection, hearing grossly normal, nares patent NECK: Normal ROM, supple, no lymphadenopathy, JVD, or masses LUNGS: No distress, speaks full sentences, clear to auscultation bilaterally HEART: Regular rate and rhythm, normal S1 and S2, no murmurs, rubs or gallops, peripheral pulses normal and equal bilaterally. ABDOMEN: Soft, nontender, normoactive bowel sounds. No guarding, no rebound. No masses EXTREMITIES : Normal inspection, Normal range of motion, no edema. No clubbing or cyanosis. NEUROLOGICAL: Cranial nerves II through XII grossly intact. Normal speech SKIN: Warm, Dry, normal turgor, no rashes or lesions noted
--- NOTE | 2020-04-04 12:57 | PN ---
Progress Note (short form) - Note Progress Note: ICU Transfer Note: Patient is a 59 y/o F with a significant past medical history of IDDM (currently on an insulin pump) and HTN who presented in the ED for nausea, abd pain, and hyperglycemia. Patient admitted to ICU for DKA management. AG has now closed, patient off of insulin drip, and patient is now transitioned to SQ insulin. Patient safe for transfer to Med-Surg unit.
--- NOTE | 2020-04-04 13:17 | PN ---
Teaching Attending Note Name of Resident: Jayson Chapa ATTENDING PHYSICIAN STATEMENT I saw and evaluated the patient. I reviewed the resident's note and discussed the case with the resident. I agree with the resident's findings and plan as documented. SUBJECTIVE: Pt seen and examined in the ICU. Blood sugars improved. AM labs without anion gap. OBJECTIVE: Vital Signs Period Temp Pulse Resp BP Sys/Rankin Pulse Ox Last 24 Hr 97 F-98.5 F 67-110 14-20 103-137/54-74 98-99 Intake & Output 04/01/20 04/02/20 04/03/20 04/04/20 23:59 23:59 23:59 23:59 Intake Total 3050 800 Output Total 250 Balance 2800 800 Weight 79.696 kg Gen: NAD at rest Heart: RRR Lung: decreased breath sounds at the bases Abd: soft, nontender Ext: no edema CBC, BMP 04/04/20 05:20 04/04/20 05:20 Active Medications Acetaminophen (Tylenol -) 650 mg PO Q4H PRN PRN Reason: HEADACHE Last Admin: 04/03/20 18:05 Dose: 650 mg Documented by: Benzocaine/Menthol (Cepacol Lozenge -) 1 each MM PRN PRN PRN Reason: SORE THROAT Last Admin: 04/04/20 08:06 Dose: 1 each Documented by: Chlorhexidine Gluconate (Hibiclens For Decolonization -) 1 applic TP HS [facility] Last Admin: 04/03/20 22:44 Dose: 1 applic Documented by: Enoxaparin Sodium (Lovenox -) 40 mg SQ DAILY [facility] Last Admin: 04/04/20 10:46 Dose: 40 mg Documented by: Insulin Aspart (Novolog Vial Sliding Scale -) 1 vial SQ ACHS [facility]; Protocol Last Admin: 04/04/20 12:21 Dose: 4 units Documented by: Insulin Detemir (Levemir Vial) 20 units SQ DAILY [facility] Mupirocin (Bactroban Ointment (For Decolonization) -) 1 applic NS BID [facility] Stop: 04/08/20 21:59 Last Admin: 04/03/20 22:44 Dose: Not Given Documented by: ASSESSMENT AND PLAN: Diabetic Ketoacidosis resolved Lactic Acidosis HTN DM - glucose control - PO as tolerated - OOB - DVT prophylaxis
[2020-04-04] MEDS: MUPIROCIN 2% TOPICAL OINTMENT FOR DECOLONIZATION NS SCH (15:34)
[2020-04-04] MEDS ORDERED: ACETAMINOPHEN 325 MG TABLET (FP) PO PRN (16:12)
[2020-04-04] MEDS ORDERED: INSULIN (LEVEMIR) 100 UNITS/ML UNITS SQ ONE (21:50)
[2020-04-05] MEDS: INSULIN SLIDING SCALE (NOVOLOG) 1 VIAL SQ SCH ×2 (06:20→12:04)
[2020-04-05] MEDS ORDERED: INSULIN (LEVEMIR) 100 UNITS/ML UNITS SQ SCH ×2 (07:00→13:09)
[2020-04-05] MEDS ORDERED: ENOXAPARIN NA (PORCINE) 40 MG/0.4 ML DISP.SYRIN SQ SCH (10:00)
[2020-04-05 10:15] LABS: ALBUMIN 3.3 g/dl (3.4-5.0); BILIRUBIN,TOTAL 1.2 mg/dL (0.2-1); BLOOD UREA NITROGEN 13.2 mg/dL (7-18); CALCIUM 8.6 mg/dL (8.5-10.1); CREATININE 0.9 mg/dL (0.55-1.3); MAGNESIUM 1.7 mg/dL (1.8-2.4); PHOSPHOROUS 1.8 mg/dL (2.5-4.9); POTASSIUM 4.1 mmol/L (3.5-5.1); TOT PROT 6.3 g/dl (6.4-8.2)
[2020-04-05] MEDS: BENZOCAINE/MENTH/CETYLPYRD CL 1 EACH LOZENGE MM PRN (10:42)
[2020-04-05] MEDS ORDERED: INSULIN (NOVOLOG) ASPART 100 UNITS/ML 10ML VIAL ONE (12:00)
--- NOTE | 2020-04-05 14:04 | PN ---
Teaching Attending Note Name of Resident: Ambar Calzada ATTENDING PHYSICIAN STATEMENT I saw and evaluated the patient. I reviewed the resident's note and discussed the case with the resident. I agree with the resident's findings and plan as documented. SUBJECTIVE: pt seen and examined at bedside OBJECTIVE: Last Vital Signs Temp Pulse Resp BP Pulse Ox 98.4 F 79 18 149/74 97 04/05/20 10:00 04/05/20 10:00 04/05/20 10:00 04/05/20 10:04/05/20 10:00 GENERAL: Awake, alert, and fully oriented, in no acute distress. HEAD: Normal with no signs of trauma. EYES: Pupils equal, round and reactive to light, sclera anicteric, conjunctiva clear. LUNGS: Breath sounds equal, clear to auscultation bilaterally. No wheezes, and no crackles. No accessory muscle use. HEART: Regular rate and rhythm, normal S1 and S2 ABDOMEN: Soft, nontender, not distended MUSCULOSKELETAL: Normal range of motion at all joints. No bony deformities or tenderness. No CVA tenderness. UPPER EXTREMITIES: 2+ pulses, warm, well-perfused. No cyanosis. No clubbing. No peripheral edema. LOWER EXTREMITIES: 2+ pulses, warm, well-perfused. No calf tenderness. No peripheral edema. NEUROLOGICAL: Cranial nerves II-XII intact. Normal speech. CBCD WBC 11.3 K/mm3 (4.0-10.0) H 04/04/20 05:20 RBC 3.90 M/mm3 (3.60-5.2) 04/04/20 05:20 Hgb 11.4 GM/dL (10.7-15.3) 04/04/20 05:20 Hct 34.7 % (32.4-45.2) 04/04/20 05:20 MCV 88.8 fl (80-96) 04/04/20 05:20 MCHC 32.8 g/dl (32.0-36.0) 04/04/20 05:20 RDW 13.1 % (11.6-15.6) 04/04/20 05:20 Plt Count 235 K/MM3 (134-434) 04/04/20 05:20 MPV 9.0 fl (7.5-11.1) 04/04/20 05:20 CMP Sodium 139 mmol/L (136-145) 04/05/20 09:10 Potassium 4.1 mmol/L (3.5-5.1) 04/05/20 09:10 Chloride 106 mmol/L (98-107) 04/05/20 09:10 Carbon Dioxide 27 mmol/L (21-32) 04/05/20 09:10 Anion Gap 6 MMOL/L (8-16) L 04/05/20 09:10 BUN 13.2 mg/dL (7-18) 04/05/20 09:10 Creatinine 0.9 mg/dL (0.55-1.3) 04/05/20 09:10 Calcium 8.6 mg/dL (8.5-10.1) 04/05/20 09:10 Total Bilirubin 1.2 mg/dL (0.2-1) H 04/05/20 09:10 AST 21 U/L (15-37) 04/05/20 09:10 ALT 30 U/L (13-61) 04/05/20 09:10 Alkaline Phosphatase 95 U/L (45-117) 04/05/20 09:10 Total Protein 6.3 g/dl (6.4-8.2) L 04/05/20 09:10 Albumin 3.3 g/dl (3.4-5.0) L 04/05/20 09:10 Active Medications Acetaminophen (Tylenol -) 650 mg PO Q4H PRN PRN Reason: HEADACHE Benzocaine/Menthol (Cepacol Lozenge -) 1 each MM Q2H PRN PRN Reason: SORE THROAT Last Admin: 04/05/20 10:42 Dose: 1 each Documented by: Enoxaparin Sodium (Lovenox -) 40 mg SQ DAILY [facility] Last Admin: 04/05/20 10:34 Dose: 40 mg Documented by: Insulin Aspart (Novolog Vial Sliding Scale -) 1 vial SQ [facility]; Protocol Last Admin: 04/05/20 12:04 Dose: 4 units Documented by: Insulin Detemir (Levemir Vial) 30 units SQ DAILY@0700 [facility] ASSESSMENT AND PLAN: 59 y/o lady with a significant past medical history of IDDM (currently on an insulin pump) and HTN who presented in the ED for nausea and vomiting, admitted for DKA Diabetic Ketoacidosis resolved likely due to pump malfunction will discharge for outpatient follow up with endo and pump re-education will provide insulin glargine/lispro for back up incase pump malfunctions educated pt about importance of medication, diet compliance, BG monitoring Obesity HTN DM - DVT prophylaxis
[2020-04-05 15:32] VITALS: BP 154/72; PULSE 96; TEMP 98.1
--- NOTE | 2020-04-05 17:15 | DS ---
Physical Exam: SUBJECTIVE: Patient seen and examined OBJECTIVE: Vital Signs Period Temp Pulse Resp BP Sys/Rankin Pulse Ox Last 24 Hr 98.1 F-99 F 79-96 18-20 113-154/58-74 95-98 PHYSICAL EXAM GENERAL: The patient is awake, alert, and fully oriented, in no acute distress. HEAD: Normal with no signs of trauma. EYES: PERRL, extraocular movements intact, sclera anicteric, conjunctiva clear. ENT: Ears normal, nares patent, oropharynx clear without exudates, moist mucous membranes. NECK: Trachea midline, full range of motion, supple. LUNGS: Breath sounds equal, clear to auscultation bilaterally, no wheezes, no crackles, no accessory muscle use. HEART: Regular rate and rhythm, S1, S2 without murmur, rub or gallop. ABDOMEN: Soft, nontender, nondistended, normoactive bowel sounds, no guarding, no rebound, no hepatosplenomegaly, no masses. EXTREMITIES: 2+ pulses, warm, well-perfused, no edema. NEUROLOGICAL: Cranial nerves II through XII grossly intact. Normal speech, gait not observed. PSYCH: Normal mood, normal affect. SKIN: Warm, dry, normal turgor, no rashes or lesions noted. LABS Laboratory Results - last 24 hr 04/04/20 04/05/20 04/05/20 21:54 00:49 06:18 Sodium Potassium Chloride Carbon Dioxide Anion Gap BUN Creatinine Est GFR (CKD-EPI)AfAm Est GFR (CKD-EPI)NonAf POC Glucometer 390 157 365 Random Glucose Calcium Phosphorus Magnesium Total Bilirubin AST ALT Alkaline Phosphatase Total Protein Albumin 04/05/20 04/05/20 04/05/20 09:10 11:46 15:34 Sodium 139 Potassium 4.1 Chloride 106 Carbon Dioxide 27 Anion Gap 6 L BUN 13.2 Creatinine 0.9 Est GFR (CKD-EPI)AfAm 82.26 Est GFR (CKD-EPI)NonAf 70.98 POC Glucometer 234 96 Random Glucose 281 H Calcium 8.6 Phosphorus 1.8 L Magnesium 1.7 L Total Bilirubin 1.2 H AST 21 ALT 30 Alkaline Phosphatase 95 Total Protein 6.3 L Albumin 3.3 L HOSPITAL COURSE: Date of Admission:04/03/20 59 y/o lady with a significant past medical history of IDDM (currently on an insulin pump) and HTN who presented in the ED for nausea and vomiting, admitted for DKA. Treated her with insulin. Diabetic Ketoacidosis resolved, etiology likely due to pump malfunction. She is clinically stable for discharge. Discharged her with prescriptions for Insulin Lispro 7 units and Insulin Glargine 20 units to use if the pump is not functional. Also Provided her with instructions for outpatient follow up with endo and pump re-education. Educated pt about importance of medication, diet compliance, BG monitoring Date of Discharge: 04/05/20 Minutes to complete discharge: 36 Discharge Summary Problems reviewed: Yes Reason For Visit: DIABETIC KETOACIDOSIS Condition: Stable - Instructions Diet, Activity, Other Instructions: YOUR VISIT: You were admitted to the hospital for Diabetic keto acidosis. Your labs showed that your body is in an acidotic state due to high blood sugar. You were treated with insulin. Your labs after treatment showed improvement of the acidotic state. MEDICATIONS: Please START taking Lantis 20units a day and Lispro 7units three times a day with meals, IF YOUR PUMP IS NOT SET UP IF the pump is set up and able to be used, Please ONLY USE the pump. Continue to take all other home medications as prescribed Please Continue to monitor your blood sugar at home FOLLOW UPS: Please follow up with your Interpreter Deaf, Patrick Swan, for CDE pump medical management trainer and to restart your insulin pump. Please visit your primary care provider within 2 weeks to follow up with your labwork and hospital visit. ADDITIONAL INSTRUCTIONS: You are being discharged to your home. Please return to the Emergency department if you are experiencing worsening or concerning symptoms. Referrals: Patrick Bedoya MD [Staff Physician] - Flaquito Kang MD [Staff Physician] - Disposition: HOME - Home Medications Comprehensive Discharge Medication List: Ambulatory Orders Insulin Pump Cartridge [Accu-Chek D-Andrew Plus] 1 each SQ ASDIR 02/13/12 Losartan Potassium 100 mg PO DAILY 04/03/20 Insulin Glargine,Hum.rec.anlog [Lantus Solostar] 20 unit SQ DAILY #1 insuln.pen 04/05/20 Insulin Lispro [Humalog] 7 unit SQ AC #1 cartridge 04/05/20 Mupirocin Ointment [Bactroban Ointment (For Decolonization) -] 1 applic NS BID applic 04/05/20 This patient is new to me today: No Emergency Visit: Yes ED Registration Date: 04/03/20 Care time: The patient presented to the Emergency Department on the above date and was hospitalized for further evaluation of their emergent condition. Critical Care patient: No - Discharge Referral Referred to [facility] No ATTENDING PHYSICIAN STATEMENT I saw and evaluated the patient. I reviewed the resident's note and discussed the case with the resident. I agree with the resident's findings and plan as documented. SUBJECTIVE: OBJECTIVE: ASSESSMENT AND PLAN:
== END 2020-04-05 16:29 | disposition home or self-care (01) | DRG 813 ==
LOC: JER 09:17 → JERBED 14:09 → JICU 18:27 → J8W 04-04 15:57
PROVIDERS: ADMIT Internal Medicine; ATTEND Student in an Organized Health Care Education/Training Program
DX: T85.694A Other mechanical complication of insulin pump, initial encounter (principal); E10.10 Type 1 diabetes mellitus with ketoacidosis without coma; I10 Essential (primary) hypertension; E03.9 Hypothyroidism, unspecified; R00.0 Tachycardia, unspecified; N32.89 Other specified disorders of bladder; R00.2 Palpitations; E66.9 Obesity, unspecified; Z68.32 Body mass index [BMI] 32.0-32.9, adult
CPT/HCPCS: 36415; 71045-TC-FY; 80048; 80053; 81003; 82010; 82550; 82803; 82962; 83605; 83690; 83735; 84100; 84484; 85025; 93005; 93010; 99285-25; U0003

== ENCOUNTER 2022-10-03 02:41 | Inpatient (IN) | payer OTHER ==
[2022-10-03] MEDS ORDERED: SODIUM CHLORIDE 1,000 ML IV STA (02:57)
[2022-10-03] MEDS ORDERED: ONDANSETRON 4 MG/2 ML VIAL ONE (02:57)
[2022-10-03] MEDS ORDERED: ONDANSETRON 4 MG/2 ML VIAL IVPB ONE (02:57)
[2022-10-03 03:15] VITALS: BMI 36.3
[2022-10-03 03:37] LABS: BASO % 0.6 % (0-2.0); EOS % 0.3 % (0-4.5); HEMATOCRIT 42.8 % (32.4-45.2); LYMPH % 15.5 % (8-40); MCH 27.7 pg (25.7-33.7); MCHC 32.8 g/dl (32.0-36.0); MEAN CELL VOLUME 84.4 fl (80-96); MEAN PLT VOLUME 8.5 fl (7.5-11.1); MONO % 4.1 % (3.8-10.2); NEUT % 79.5 % (42.8-82.8); PLATELET COUNT 332 10^3/uL (134-434); RBC 5.07 M/mm3 (3.60-5.2); RDW 13.7 % (11.6-15.6); WHITE BLOOD COUNT 14.6 K/mm3 (4.0-10.0)
[2022-10-03 03:56] LABS: CHLORIDE 97 mmol/L (98-107); SODIUM 136 mmol/L (136-145)
[2022-10-03 03:58] LABS: CALCIUM 9.7 mg/dL (8.5-10.1)
[2022-10-03 03:59] LABS: ALBUMIN 3.8 g/dl (3.4-5.0); ANION GAP 10 MMOL/L (8-16); BLOOD UREA NITROGEN 24.3 mg/dL (7-18); CO2 30 mmol/L (21-32)
[2022-10-03 04:02] LABS: CREATININE 1.1 mg/dL (0.55-1.3); SGOT/AST 24 U/L (15-37); SGPT/ALT 21 U/L (13-61)
[2022-10-03 04:04] LABS: TOT PROT 7.2 g/dl (6.4-8.2)
[2022-10-03 04:05] LABS: ALK PHOS 118 U/L (45-117)
[2022-10-03 04:17] LABS: GLUCOSE,RANDOM 446 mg/dL (74-106); LACTIC ACID 2.4 mmol/L (0.4-2.0)
[2022-10-03] MEDS ORDERED: INSULIN REGULAR HUMAN 100 UNITS/ML *VIAL IVPUSH ONE (04:31)
[2022-10-03] MEDS ORDERED: SODIUM CHLORIDE 0.45% 1,000 ML IV SCH ×2 (05:00→11:11)
[2022-10-03 05:46] LABS: PH,URINE 5.5 (5.0-8.0); URINE APPEARANCE CLEAR; URINE BILIRUBIN NEGATIVE (NEGATIVE); URINE COLOR YELLOW; URINE GLUCOSE (UA) 3+ (NEGATIVE); URINE KETONE 3+ (NEGATIVE); URINE LEUK ESTERASE NEGATIVE (NEGATIVE); URINE NITRITE NEGATIVE (NEGATIVE); URINE PROTEIN NEGATIVE (NEGATIVE); URINE UROBILINOGEN 0.2 mg/dL (0.2-1.0)
[2022-10-03] MEDS ORDERED: METOCLOPRAMIDE HCL INJECTION 10 MG/2 ML VIAL IVPUSH PRN (10:28)
[2022-10-03] MEDS: INSULIN (LEVEMIR) 100 UNITS/ML UNITS SQ SCH ×2 (10:35→21:21)
[2022-10-03] MEDS ORDERED: INSULIN SLIDING SCALE (NOVOLOG) 1 VIAL SQ SCH (11:00)
[2022-10-03] MEDS: INSULIN SLIDING SCALE (NOVOLOG) 1 VIAL SQ SCH ×2 (15:54→21:22)
[2022-10-03 22:56] VITALS: RESP 18
[2022-10-04 06:46] VITALS: PULSE 92
[2022-10-04] MEDS ORDERED: INSULIN (LEVEMIR) 100 UNITS/ML UNITS SQ SCH (07:00)
[2022-10-04] MEDS: INSULIN SLIDING SCALE (NOVOLOG) 1 VIAL SQ SCH ×2 (07:27→11:29)
[2022-10-04 08:23] VITALS: BP 124/66; TEMP 98.3
[2022-10-04 08:49] LABS: ALBUMIN 3.3 g/dl (3.4-5.0); BILIRUBIN,TOTAL 1.2 mg/dl (0.2-1); CALCIUM 8.7 mg/dl (8.5-10); CREATININE 0.7 mg/dl (0.55-1.3); TOT PROT 6.1 g/dl (6.4-8.2)
[2022-10-04 09:44] LABS: BASO % 0.4 % (0-2.0); EOS % 0.8 % (0-4.5); HEMATOCRIT 35.6 % (32.4-45.2); HEMOGLOBIN 11.6 GM/dL (10.7-15.3); LYMPH % 33.3 % (8-40); MCH 27.7 pg (25.7-33.7); MCHC 32.7 g/dl (32.0-36.0); MEAN CELL VOLUME 84.6 fl (80-96); MEAN PLT VOLUME 8.3 fl (7.5-11.1); MONO % 7.4 % (3.8-10.2); NEUT % 58.1 % (42.8-82.8); PLATELET COUNT 278 10^3/uL (134-434); RDW 13.6 % (11.6-15.6); WHITE BLOOD COUNT 9.8 K/mm3 (4.0-10.0)
== END 2022-10-04 12:04 | disposition home or self-care (01) | DRG 420 ==
LOC: FER 02:41 → FM/S 07:14
PROVIDERS: ADMIT Internal Medicine
DX: E11.10 Type 2 diabetes mellitus with ketoacidosis without coma (principal); I10 Essential (primary) hypertension; E78.5 Hyperlipidemia, unspecified; R11.2 Nausea with vomiting, unspecified; E11.43 Type 2 diabetes mellitus with diabetic autonomic (poly)neuropathy; K31.84 Gastroparesis
CPT/HCPCS: 0241U-QW; 36415; 80053; 81003; 82010; 82962; 83036; 83605; 84484; 85025; 87086; 93005; 99285-25